=== PATIENT | female | born 1970 | race Caucasian/White ===

== ENCOUNTER 2016-10-05 17:10 | Emergency (ER) | payer BC, OTHER ==
[2016-10-05 17:46] LABS: HEMOGLOBIN 14.1 gm/dl (12.3-15.3); RED BLOOD COUNT 4.74 M/UL (4.00-5.10); WHITE BLOOD COUNT 6.7 K/UL (4.5-11.0)
[2016-10-05 18:03] LABS: BUN/CREATININE RATIO 20 (0-10)
== END 2016-10-05 20:13 | disposition home or self-care (01) ==
LOC: ER1 17:10
PROVIDERS: Preventive Medicine Occupational Medicine
DX: S16.1XXA Strain of muscle, fascia and tendon at neck level, initial encounter (principal); S80.01XA Contusion of right knee, initial encounter; F17.200 Nicotine dependence, unspecified, uncomplicated; V43.52XA Car driver injured in collision with other type car in traffic accident, initial encounter; Y93.89 Activity, other specified; Y92.410 Unspecified street and highway as the place of occurrence of the external cause
CPT/HCPCS: 36415; 70450; 71010; 72070; 72100; 72125; 73564; 80048; 81001; 85025; 99284

== ENCOUNTER 2016-10-08 14:10 | Emergency (ER) | payer OTHER, BC ==
[2016-10-08 15:21] LABS: HEMOGLOBIN 13.8 gm/dl (12.3-15.3); RED BLOOD COUNT 4.73 M/UL (4.00-5.10); WHITE BLOOD COUNT 6.1 K/UL (4.5-11.0)
[2016-10-08 15:43] LABS: BUN/CREATININE RATIO 26 (0-10)
== END 2016-10-08 18:35 | disposition home or self-care (01) ==
LOC: ER1 14:10
PROVIDERS: Emergency Medicine
DX: R10.9 Unspecified abdominal pain (principal); Z79.899 Other long term (current) drug therapy; Z90.49 Acquired absence of other specified parts of digestive tract
CPT/HCPCS: 36415; 80053; 81001; 85025; 87086; 99284; J7030; J7050; Q9962